=== PATIENT | male | born 1945 | race Asian ===

== ENCOUNTER 2018-05-01 10:36 | Inpatient (IN) | payer OTHER ==
[2018-05-01] VITALS (19 sets, daily range): BP systolic 130–161; BP diastolic 49–108; TEMP 97.5–99.6; Ht 185.4 cm; Wt 64.9 kg
[~2018-05-01] VITALS: Ht 185.4 cm; Wt 64.9 kg
[2018-05-01 11:36] LABS: PLATELET COUNT 70 K/uL (142-355)
[2018-05-01 11:40] LABS: PARTIAL THROMBOPLASTIN TIME 24.7 SECONDS (24.5-33.6)
--- NOTE | 2018-05-01 15:40 | NUR ---
PT TO ICU BED 2 FROM OR VIA STRETCHER.ILENE MATTHEWS RN HERE & RECEIVED PT & REPORT, PT ASSISTED TO BED, PT DROWSY.IV R UPPER ARM INFUSING AT KVO NS WITHOUT PROBLEMS.
--- NOTE | 2018-05-01 16:50 | NUR ---
PT'S GIRLFRIEND MARY PATEL IN TO SEE PT. PT MORE AWAKE & TALKING.
--- NOTE | 2018-05-01 17:06 | NUR ---
CALL [facility] ER TO REQUEST ORDER FROM DR PRATT FOR BLOOD. LEFT A MESSAGE WITH FRANCE. SCD'S TO BOTH LEGS.
--- NOTE | 2018-05-01 17:38 | NUR ---
PHONE CALL TO ER AGAIN TO SPEAK TO DR PRATT. FRANCE KUMARI LPN STATES'I TOLD HIM YOU CALLED EARLIER. REQUESTED AN ORDER TO TRANSFUSE PRBC. ORDER GIVEN PER DR PRATT.
--- NOTE | 2018-05-01 17:49 | NUR ---
DR PRATT CALLED BACK WITH ORDER TO TRANSFUSE PT 1 UNIT [facility]FP. PT RESTING QUIETLY WITH FAMILY AT BS.
--- NOTE | 2018-05-01 18:00 | NUR ---
CALLED FOR MED/SURG STAFF TO BRING 1 UNIT PRBC FROM LAB. MS KIRK SAID SHE WOULD TELL SOMEONE WHEN THEY CAME BACK TO THE DESK.
--- NOTE | 2018-05-01 19:07 | NUR ---
PT'S IN TO SEE PT. STATES' 'WE'RE STILL WE JUST DON'T LIVE TOGETHER'.
--- NOTE | 2018-05-01 20:20 | NUR ---
1ST UNIT OF PRBC STARTED AT THIS TIME, NO PROBLEMS NOTED, LITHOGRAPHIC PRESS FEEDER REMAINS AT BEDSIDE TO WATCH FOR S/S OF REACTIONS.
--- NOTE | 2018-05-01 22:25 | NUR ---
PT RESTING QUIETLY IN BED IN POSITON OF COMFORT WITH EYES CLOSED, NO S/S OF PAIN OR DISTRESS NOTED, RESP RATE NONLABORED/NORMAL, O2 AT 2LPM VIA NC WITH SAT OF 100%, 20G IV INTACT TO L FA WITH 1ST UNIT OF BLOOD INFUSING, VITALS BEING MONITORED, PUTTY GLAZER IN USE, WILL MONITOR CLOSELY, RAILS UP, BED IN LOW POSITION.
--- NOTE | 2018-05-01 23:25 | NUR ---
2ND UNIT OF PRBC STARTED AT THIS TIME, NO S/S OF PROBLEMS NOTED, FORM DESIGNER REMAINS AT BEDSIDE TO MONITOR FOR REACTION. PT RESTING WITH EYES CLOSED IN POSITION OF COMFORT.
[2018-05-02] VITALS (18 sets, daily range): BP systolic 138–178; BP diastolic 69–99; TEMP 98.2–99.3
--- NOTE | 2018-05-02 00:02 | NUR ---
RESTING IN BED WITH EYES CLOSED, NO S/S OF PAIN OR DISTRESS NOTED, RESP RATE NORMAL, O2 AT 2LPM VIA NC WITH SAT OF 100%, VITALS BEING MONITORED, YARN SORTER IN USE, 2ND UNIT OF PRBC INFUSING AT THIS TIME TO 20G IN L FA WITH NO PROBLEMS OR REACTIONS NOTED, URINAL WITHIN PT'S REACH, WILL MONITOR, RAILS UP, BED IN LOW POSITION.
--- NOTE | 2018-05-02 02:30 | NUR ---
PT RESTING WITH EYES CLOSED, NO S/S OF PAIN OR DISTRESS NOTED, RESP RATE NORMAL/NONLABORED, O2 AT 2LPM VIA NC WITH SAT OF 100%, 20G IV INTACT TO L FA WITH NO PROBLEMS NOTED TO SITE, 2ND UNIT OF PRBC FINISHED INFUSING AT THIS TIME WITH NO PROBLEMS NOTED, VITALS BEING MONITORED, OBIEE ARCHITECT IN USE. URINAL WITHIN PT'S REACH, WILL MONITOR CLOSELY, RAILS UP, BED IN LOW POSITION.
--- NOTE | 2018-05-02 03:00 | NUR ---
FRESH FROZEN PLASMA STARTED AT THIS TIME, INFUSING BY GRAVITY, NO PROBLEMS NOTED, BALANCE STAFF STAKER REMAINS AT BEDSIDE TO WATCH FOR S/S OF REACTION.
--- NOTE | 2018-05-02 03:30 | NUR ---
PLASMA FINISHED INFUSING BY GRAVITY AT THIS TIME, NO S/S OF REACTIONS OR OTHER PROBLEMS NOTED. PT AWAKE BUT REMAINS CONFUSED TO PLACE AND TIME, REORIENTED NEEDED. 20G IV INTACT TO L FA, RESP RATE NONLABORED, O2 AT 2LPM VIA NC WITH SAT OF 100%, AUDIO VISUAL AIDS DIRECTOR IN USE, VITALS BEING MONITORED, WILL MONITOR CLOSELY, RAILS UP, BED IN LOW POSITION.
--- NOTE | 2018-05-02 05:34 | NUR ---
RESTING WITH EYES CLOSED, NO S/S OF PAIN OR DISTRESS NOTED, RESP RATE NORMAL, O2 AT 2LPM VIA NC, DIRECTOR OF OPERATIONS HOME HEALTH IN USE, VITALS BEING MONITORED, 20G IV LOCK INTACT TO L FA WITH NO PROBLEMS NOTED TO SITE, WILL MONITOR, RAILS UP X3, BED IN LOW POSITION.
--- NOTE | 2018-05-02 05:41 | NUR ---
PATIENT IS ON A CLD NEED TO ADVNACE KLAUDIA AND GOAL TO EAT 75% OR MORE OF MEALS. IBW 184+/-10% AND KCAL NEEDS 2500, PRO 84 TO 94 GRAMS AND FLUIDS 2500 AND IS 90% IBW, BMI 21.76 WNL'S. ADMITTED WITH GI BLEED AND TIA. RECOMMEND: 1- ADVANCE KLAUDIA. 2-ADD 1 PO Q DAY. 3- IF NOT EATNG 75% OF MEALS SUGGEST TO ADD A SUPPLEMENT WITH MEALS. 4-INCREASE FOODS HIGH IN FE WITH MEALS AND ADD ORANGE JUICE OR A FOOD HIGH IN VIT C.
--- NOTE | 2018-05-02 18:00 | NUR ---
PT BROUGHT TO FLOOR VIA W/C BY [facility]. PT ORIENTED TO ROOM AND CALL LIGHT BED IN LOWEST POSITION SIDE RAILS UP X 2. NAD NOTED. WILL CONTINUE TO MONITER
--- NOTE | 2018-05-02 18:35 | NUR ---
REPORT RECEIVED FROM DIANNE SHOEMAKER. NO PROBLEMS NOTED
[2018-05-03 04:00] VITALS: BP 162/89; TEMP 98.1
[2018-05-03 08:14] VITALS: BP 152/92; TEMP 99.1
[2018-05-03 10:01] LABS: PLATELET COUNT 201 K/uL (142-355)
[2018-05-03 10:29] LABS: POTASSIUM 4.2 mmol/L (3.6-5.2)
[2018-05-03 12:15] VITALS: BP 145/81; TEMP 99.5
[2018-05-03 16:07] VITALS: BP 155/78; TEMP 99.7
[2018-05-03 20:00] VITALS: BP 166/88; TEMP 99.8
[2018-05-04] VITALS (8 sets, daily range): BP systolic 142–182; BP diastolic 83–96; TEMP 97.8–99.7
[2018-05-04 06:06] LABS: POTASSIUM 3.6 mmol/L (3.6-5.2)
--- NOTE | 2018-05-04 06:07 | NUR ---
CALLED DR GUERRERO AT 0400 TO REPORT PT'S BP OF 182/96. ORDERD CLONIDINE 0.1 MG PO TO BE GIVEN NOW FOR HIGH BP.
[2018-05-04 06:28] LABS: PLATELET COUNT 215 K/uL (142-355)
--- NOTE | 2018-05-04 10:34 | NUR ---
RADIOLOGY AT DOING CAROTID US. WILL CONTINUE TO MONITER
[2018-05-05] VITALS (14 sets, daily range): BP systolic 113–166; BP diastolic 59–91; TEMP 97.5–99.2
[2018-05-05 05:51] LABS: PLATELET COUNT 181 K/uL (142-355)
[2018-05-05 06:07] LABS: POTASSIUM 4.1 mmol/L (3.6-5.2)
--- NOTE | 2018-05-05 11:45 | NUR ---
REPORT RECIEVED FROM OR NURSE. PT HAD SIGNIFICANT HEMMRHOIDS, DIVERTICULOSIS, AND 3 POLYPS THAT WILL BE SENT OFF. PT TOLERATED SURGERY WELL. PT TO HAVE REGULAR DIET, LAST VITALS, BP 90/50, SPO2 100%, HR 61. PT TO F/U WITH DR RAHMAN IN 1-2 WKS.
--- NOTE | 2018-05-05 11:55 | NUR ---
PT ARRRIVED FROM SURGEY VIA BED. PT STABLE AT THIS TIME. PT TALKING TO AND DAUGHTER. NAD NOTED
[2018-05-06 00:02] VITALS: BP 150/79; TEMP 97.7
[2018-05-06 04:00] VITALS: BP 155/87; TEMP 98
[2018-05-06 05:23] LABS: PLATELET COUNT 185 K/uL (142-355)
[2018-05-06 05:54] LABS: POTASSIUM 3.8 mmol/L (3.6-5.2)
[2018-05-06 08:03] VITALS: BP 157/93; TEMP 98.7
[2018-05-06 12:14] VITALS: BP 135/69; TEMP 98.9
[2018-05-06 16:03] VITALS: BP 135/69; TEMP 98.9
[2018-05-06 20:00] VITALS: BP 149/84; TEMP 98.7
[2018-05-07] VITALS (7 sets, daily range): BP systolic 121–154; BP diastolic 60–84; TEMP 98.7–99.1
[2018-05-07 04:40] LABS: PLATELET COUNT 187 K/uL (142-355)
[2018-05-07 05:08] LABS: POTASSIUM 3.9 mmol/L (3.6-5.2)
[2018-05-08 04:17] VITALS: BP 144/74; TEMP 99
[2018-05-08 05:26] LABS: PLATELET COUNT 188 K/uL (142-355)
--- NOTE | 2018-05-08 05:45 | NUR ---
PT PULLED OUT IV TO THE LFA WITH TIP INTACT. PT IS SUPPOSED TO BE D/C HOME TODAY. WILL WAIT TO RESTART IV AFTER TALKWITH .
[2018-05-08 05:55] LABS: POTASSIUM 3.9 mmol/L (3.6-5.2)
[2018-05-08 08:00] VITALS: BP 137/79; TEMP 97.9
[2018-05-08 12:00] VITALS: BP 134/72; TEMP 98
[2018-05-08 16:00] VITALS: BP 147/72; TEMP 98.8
[2018-05-08 20:00] VITALS: BP 136/73; TEMP 99.7
[2018-05-08 23:58] VITALS: BP 134/72; TEMP 99
[2018-05-09 04:00] VITALS: BP 129/69; TEMP 99.2
[2018-05-09 06:55] LABS: PLATELET COUNT 191 K/uL (142-355)
[2018-05-09 08:00] VITALS: BP 121/73; TEMP 98.6
[2018-05-09] MEDS ORDERED: LISITAB PO (11:38)
[2018-05-09] MEDS ORDERED: AMOXICILLIN250 M2 PO (11:38)
[2018-05-09] MEDS ORDERED: CLAR250T2 PO (11:38)
[2018-05-09] MEDS ORDERED: ATOR20TA2 PO (11:38)
[2018-05-09] MEDS ORDERED: PANTOPRAZOLE 40MG TA PO (11:38)
[2018-05-09] MEDS ORDERED: ASPI325T40 PO (11:38)
[2018-05-09] MEDS ORDERED: SUCR1SUS PO (11:38)
--- NOTE | 2018-05-09 16:15 | NUR ---
DISCHARGE INSTRUCTIONS GIVEN. PATIENT IS TO FOLLOW UP WITH PCP IN 5-7 DAYS. PATIENTS RX CALLED INTO [facility]. PATIENT AND PATIENTS FAMILY UNDERSTAND ALL DISCHARGE INSTRUCTIONS. PATIENT LEFT VIA WC. NAD NOTED. FAMILY AT PATIENTS SIDE.
== END 2018-05-09 15:35 | disposition home health service (06) | DRG 64 ==
LOC: ED 10:36 → ICU 14:35 → ED 15:26 → MED/SURG 05-02 17:40
PROVIDERS: Emergency Medicine; Specialist; Student in an Organized Health Care Education/Training Program; ADMIT Family Medicine
PROC: 0DJ08ZZ Inspection of Upper Intestinal Tract, Via Natural or Artificial Opening Endoscopic (ICD-10-PCS; principal; 2018-05-01)
PROC: 30233N1 Transfusion of Nonautologous Red Blood Cells into Peripheral Vein, Percutaneous Approach (ICD-10-PCS; 2018-05-01)
PROC: 30233N1 Transfusion of Nonautologous Red Blood Cells into Peripheral Vein, Percutaneous Approach (ICD-10-PCS; 2018-05-02)
PROC: 30233K1 Transfusion of Nonautologous Frozen Plasma into Peripheral Vein, Percutaneous Approach (ICD-10-PCS; 2018-05-02)
PROC: 0DBH8ZZ Excision of Cecum, Via Natural or Artificial Opening Endoscopic (ICD-10-PCS; 2018-05-05)
DX: I63.543 Cerebral infarction due to unspecified occlusion or stenosis of bilateral cerebellar arteries (principal); K26.4 Chronic or unspecified duodenal ulcer with hemorrhage; A04.8 Other specified bacterial intestinal infections; E44.0 Moderate protein-calorie malnutrition; C94.80 Other specified leukemias not having achieved remission; K29.60 Other gastritis without bleeding; R47.01 Aphasia; R47.81 Slurred speech; I10 Essential (primary) hypertension; K57.30 Diverticulosis of large intestine without perforation or abscess without bleeding; K63.5 Polyp of colon; K64.4 Residual hemorrhoidal skin tags; R53.1 Weakness; D63.8 Anemia in other chronic diseases classified elsewhere
CPT/HCPCS: 36415; 36416; 80048; 80053; 80061; 80307; 81000; 82272; 82607; 82728; 82746; 83036; 83090; 83540; 85007; 85014; 85018; 85027; 85610; 85651; 85730; 86039; 86147; 86318; 86592; 86850; 86900; 86901; 86922; 93306; 94760; 99283; J2001; J2405; J2704; J3490; P9016; P9017

== ENCOUNTER 2018-05-20 19:29 | Outpatient (CLI) | payer OTHER ==
[~2018-05-20 19:29] MED LIST: AMOXICILLIN250 M2 PO; ASPI325T40 PO; ATOR20TA2 PO; CLAR250T2 PO; LISITAB PO; PANTOPRAZOLE 40MG TA PO; SUCR1SUS PO
== END 2018-05-20 19:38 | disposition short-term general hospital (02) ==
LOC: AMB 19:29
DX: R41.82 Altered mental status, unspecified (principal)
CPT/HCPCS: A0425; A0427

== ENCOUNTER 2018-05-20 19:47 | Inpatient (IN) | payer OTHER ==
[~2018-05-20] VITALS: Ht 185.4 cm; Wt 68.6 kg
[2018-05-20 20:05] VITALS: BP 192/95; TEMP 98.9
[2018-05-20 20:17] LABS: PLATELET COUNT 255 K/uL (142-355)
[2018-05-20 20:27] LABS: POTASSIUM 3.6 mmol/L (3.6-5.2)
[2018-05-20 21:00] VITALS: BP 188/95
[2018-05-20 23:57] VITALS: BP 156/74; TEMP 98.2; Ht 185.4 cm; Wt 68.6 kg
[2018-05-21 04:00] VITALS: BP 156/74; TEMP 98.2
[2018-05-21 08:03] VITALS: BP 155/87; TEMP 98.8
[2018-05-21 12:13] VITALS: BP 144/83; TEMP 98
[2018-05-21 16:08] VITALS: BP 146/74; TEMP 98.4
[2018-05-21 20:15] VITALS: BP 129/74; TEMP 98.8
[2018-05-22] VITALS (7 sets, daily range): BP systolic 133–196; BP diastolic 56–107; TEMP 97–99.4
[2018-05-22 03:27] LABS: PLATELET COUNT 195 K/uL (142-355)
[2018-05-22 04:59] LABS: POTASSIUM 3.5 mmol/L (3.6-5.2)
[2018-05-23 04:00] VITALS: BP 132/73; BP 198/108
[2018-05-23 06:12] LABS: POTASSIUM 3.5 mmol/L (3.6-5.2)
[2018-05-23 08:00] VITALS: BP 180/100; TEMP 98
[2018-05-23 08:13] LABS: PLATELET COUNT 199 K/uL (142-355)
[2018-05-23 12:00] VITALS: BP 157/104; TEMP 98
[2018-05-23 16:00] VITALS: BP 159/96; TEMP 98.2
[2018-05-23 20:23] VITALS: BP 148/72; TEMP 98.5
[2018-05-24 00:09] VITALS: BP 172/98; TEMP 98.9
[2018-05-24 04:00] VITALS: BP 141/77; TEMP 98.8
[2018-05-24 04:59] LABS: PLATELET COUNT 160 K/uL (142-355)
[2018-05-24 05:18] LABS: POTASSIUM 3.4 mmol/L (3.6-5.2)
[2018-05-24 08:08] VITALS: BP 142/82; TEMP 98.3
[2018-05-24 12:05] VITALS: BP 158/87; TEMP 98.1
[2018-05-24] MEDS ORDERED: DIPH25CA90 PO (13:07)
== END 2018-05-24 14:55 | DRG 812 ==
LOC: ED 19:47 → MED/SURG 22:55
PROVIDERS: Family Medicine; ADMIT Family Medicine
PROC: 30233N1 Transfusion of Nonautologous Red Blood Cells into Peripheral Vein, Percutaneous Approach (ICD-10-PCS; principal; 2018-05-22)
DX: D50.0 Iron deficiency anemia secondary to blood loss (chronic) (principal); C95.90 Leukemia, unspecified not having achieved remission; I69.854 Hemiplegia and hemiparesis following other cerebrovascular disease affecting left non-dominant side; R62.7 Adult failure to thrive; I10 Essential (primary) hypertension; K26.9 Duodenal ulcer, unspecified as acute or chronic, without hemorrhage or perforation; R41.82 Altered mental status, unspecified; E87.6 Hypokalemia; G47.09 Other insomnia; K26.7 Chronic duodenal ulcer without hemorrhage or perforation
CPT/HCPCS: 36415; 80053; 81000; 85027; 86850; 86900; 86901; 86922; 96365; 96375; 99283; P9016

== ENCOUNTER 2019-01-02 16:51 | Inpatient (IN) | payer OTHER ==
[2019-01-02] VITALS (9 sets, daily range): BP systolic 122–146; BP diastolic 60–70; TEMP 98.2–98.9
[~2019-01-02] VITALS: Ht 185.4 cm; Wt 64.9 kg
[~2019-01-02 16:51] MED LIST changes: +DIPH25CA90 PO
[2019-01-02 18:27] LABS: PLATELET COUNT 203 K/uL (142-355)
[2019-01-02 18:31] LABS: POTASSIUM 3.4 mmol/L (3.6-5.2)
[2019-01-03] VITALS (26 sets, daily range): BP systolic 118–165; BP diastolic 52–90; TEMP 97.7–98.9; Ht 185.4 cm; Wt 64.9 kg
[2019-01-03 20:34] LABS: PLATELET COUNT 169 K/uL (142-355)
[2019-01-03 20:52] LABS: POTASSIUM 3.1 mmol/L (3.6-5.2)
[2019-01-04] VITALS (16 sets, daily range): BP systolic 140–178; BP diastolic 76–101; TEMP 97.8–98.8
[2019-01-04 05:37] LABS: PLATELET COUNT 161 K/uL (142-355)
[2019-01-04 05:50] LABS: POTASSIUM 3.3 mmol/L (3.6-5.2)
[2019-01-05] VITALS (13 sets, daily range): BP systolic 148–184; BP diastolic 77–98; TEMP 96.8–98.4
[2019-01-05 05:06] LABS: PLATELET COUNT 169 K/uL (142-355)
[2019-01-05 05:27] LABS: POTASSIUM 3.6 mmol/L (3.6-5.2)
[2019-01-06] VITALS (25 sets, daily range): BP systolic 118–195; BP diastolic 62–100; TEMP 97.5–98.6
[2019-01-06 05:09] LABS: POTASSIUM 3.3 mmol/L (3.6-5.2)
[2019-01-07] VITALS (19 sets, daily range): BP systolic 117–155; BP diastolic 57–87; TEMP 98.2–99
[2019-01-07 04:39] LABS: PLATELET COUNT 121 K/uL (142-355)
[2019-01-07 04:52] LABS: POTASSIUM 3.3 mmol/L (3.6-5.2)
[2019-01-08] VITALS (19 sets, daily range): BP systolic 144–183; BP diastolic 70–93; TEMP 97.9–98.8
[2019-01-08 05:31] LABS: PLATELET COUNT 101 K/uL (142-355)
[2019-01-08 05:49] LABS: POTASSIUM 3.6 mmol/L (3.6-5.2)
[2019-01-09] VITALS (17 sets, daily range): BP systolic 135–169; BP diastolic 69–95; TEMP 97.2–98.1
[2019-01-09 05:33] LABS: POTASSIUM 3.5 mmol/L (3.6-5.2)
[2019-01-09 05:52] LABS: PLATELET COUNT 84 K/uL (142-355)
[2019-01-10] VITALS: BP 177/92; TEMP 98.3
[2019-01-10 04:00] VITALS: BP 173/90; TEMP 98.5
[2019-01-10 05:48] LABS: PLATELET COUNT 117 K/uL (142-355)
[2019-01-10 06:06] LABS: POTASSIUM 3.5 mmol/L (3.6-5.2)
[2019-01-10 08:00] VITALS: BP 166/96; TEMP 98.1
[2019-01-10 12:00] VITALS: BP 171/89; TEMP 97.8
[2019-01-10 16:00] VITALS: BP 154/87; TEMP 97.8
[2019-01-10 20:00] VITALS: BP 168/93; TEMP 97.7
[2019-01-11] VITALS: BP 185/89; TEMP 98.2
[2019-01-11 04:00] VITALS: BP 181/87; TEMP 98
[2019-01-11 08:00] VITALS: BP 158/80; TEMP 97.8
[2019-01-11 12:00] VITALS: BP 157/84; TEMP 98.4
[2019-01-11 16:00] VITALS: BP 154/77; TEMP 99
[2019-01-11 20:00] VITALS: BP 160/80; TEMP 98.7
[2019-01-12] VITALS: BP 170/75; TEMP 98.7
[2019-01-12 04:00] VITALS: BP 169/90; TEMP 98.4
[2019-01-12 08:21] VITALS: BP 159/75; TEMP 97.8
[2019-01-12 12:07] VITALS: BP 160/89; TEMP 97.5
[2019-01-12 16:00] VITALS: BP 185/90; TEMP 97.9
[2019-01-12 20:00] VITALS: BP 176/85; TEMP 99
[2019-01-13] VITALS: BP 160/80; TEMP 98.4
[2019-01-13 04:00] VITALS: BP 190/94; TEMP 98.1
[2019-01-13 08:00] VITALS: BP 165/84; TEMP 98.1
[2019-01-13 12:00] VITALS: BP 115/97; TEMP 97.9
== END 2019-01-13 14:00 | DRG 811 ==
LOC: ED 17:00 → ICU 18:46 → MED/SURG 01-04 17:50 → ICU 01-05 17:23 → MED/SURG 01-09 15:05
PROVIDERS: Family Medicine; ADMIT Family Medicine
PROC: 30233N1 Transfusion of Nonautologous Red Blood Cells into Peripheral Vein, Percutaneous Approach (ICD-10-PCS; principal; 2019-01-02)
PROC: 30233N1 Transfusion of Nonautologous Red Blood Cells into Peripheral Vein, Percutaneous Approach (ICD-10-PCS; 2019-01-03)
PROC: 30233N1 Transfusion of Nonautologous Red Blood Cells into Peripheral Vein, Percutaneous Approach (ICD-10-PCS; 2019-01-06)
DX: D50.0 Iron deficiency anemia secondary to blood loss (chronic) (principal); K26.4 Chronic or unspecified duodenal ulcer with hemorrhage; I63.531 Cerebral infarction due to unspecified occlusion or stenosis of right posterior cerebral artery; E87.0 Hyperosmolality and hypernatremia; C94.80 Other specified leukemias not having achieved remission; D61.818 Other pancytopenia; Z86.73 Personal history of transient ischemic attack (TIA), and cerebral infarction without residual deficits; I10 Essential (primary) hypertension; E11.9 Type 2 diabetes mellitus without complications; E86.0 Dehydration; E78.49 Other hyperlipidemia; E87.8 Other disorders of electrolyte and fluid balance, not elsewhere classified; I95.89 Other hypotension; E87.6 Hypokalemia; R56.9 Unspecified convulsions
CPT/HCPCS: 36415; 80048; 80053; 80185; 80307; 80320; 81000; 82272; 82550; 82553; 83036; 83735; 84153; 84439; 84443; 84484; 85007; 85014; 85018; 85027; 86850; 86900; 86901; 86922; 93005; 94760; 99285; J0360; J1165; J1200; J1650; J1940; J2060; J2930; J3360; J3490; P9016